=== PATIENT | male | born 1975 | race Caucasian/White ===

== ENCOUNTER 2020-12-12 14:14 | Outpatient (CLI) | payer BC, SELFPAY ==
--- NOTE | 2020-12-12 | ECG_ITS ---
Measurements Intervals [place] Rate: 75 P: 31 SD: 160 QRS: 38 QRSD: 103 T: 28 QT: 373 QTc: 417 Interpretive Statements SINUS RHYTHM NORMAL ECG Electronically Signed On 12-12-2020 15:22:54 CDT by Venkat Jesus D.O.
[2020-12-12 15:42] LABS: Anion Gap 18 mmol/L (8-16); Blood Urea Nitrogen 23 mg/dL (9-20); Calcium 9.3 mg/dL (8.4-10.2); Carbon Dioxide 24 mmol/L (22-30); Chloride 100 mmol/L (98-107); Estimated Glomerular Filt Rate > 60; Glucose 98 mg/dL (65-110); Potassium 4.3 mmol/L (3.4-5.0); Sodium 142 mmol/L (137-145)
== END 2020-12-12 14:15 | disposition home or self-care (01) ==
PROVIDERS: PCP Internal Medicine; Visit Provider Orthopaedic Surgery Hand Surgery
DX: M25.532 Pain in left wrist (principal)
CPT/HCPCS: 36415; 80048; 93005